=== PATIENT | male | born 1980 | race Caucasian/White ===

== ENCOUNTER 2020-09-10 10:08 | Emergency (ER) | payer MEDICARE, OTHER ==
[~2020-09-10 10:08] MED LIST: ANTIVERT 12.512.5 MG PO; ASPIRIN EC81 MG PO; ATORVASTATIN CA40 MG PO; AUGMENTIN 875-1 EACH PO; CEFUROXIME500 MG PO; HUMALOG100 UNIT/1 SQ; HUMALOG100 UNIT/2 SC; LEVEMIR FL100 UNIT/1 SQ; LIPITOR10 MG PO; NEURONTIN800 MG PO; NITROSTAT0.4 MG SL; NORCO 10-325 T1 EACH PO; PANTOPRAZOLE SO40 MG PO; PERCOCET 5-3251 EACH PO; SEROQUEL TAB 2525 MG PO; TAMSULOSIN HCL0.4 MG PO; TESSALON PERLE100 MG PO; VRAYLAR3 MG PO; ZESTRIL2.5 MG PO; ZOFRAN 4 MG TAB4 MG PO; ZOFRAN4 MG PO
[2020-09-10 10:57] LABS: HEMOGLOBIN 16.5 gm/dl (14.0-17.5); RED BLOOD COUNT 5.34 M/UL (4.20-5.50); WHITE BLOOD COUNT 14.7 K/UL (4.5-11.0)
[2020-09-10 11:20] LABS: BUN/CREATININE RATIO 17 (0-10)
== END 2020-09-10 12:53 | disposition home or self-care (01) ==
LOC: ER1 10:08
PROVIDERS: Physician Assistant
DX: R07.89 Other chest pain (principal); E11.65 Type 2 diabetes mellitus with hyperglycemia; R06.02 Shortness of breath; E78.5 Hyperlipidemia, unspecified; I25.2 Old myocardial infarction; F17.200 Nicotine dependence, unspecified, uncomplicated; Z95.1 Presence of aortocoronary bypass graft; Z95.5 Presence of coronary angioplasty implant and graft; Z79.82 Long term (current) use of aspirin; Z79.899 Other long term (current) drug therapy; Z79.4 Long term (current) use of insulin; Z88.6 Allergy status to analgesic agent; Z53.20 Procedure and treatment not carried out because of patient's decision for unspecified reasons
CPT/HCPCS: 71045; 80053; 82550; 82553; 83874; 84484; 85025; 93005; 96374; 96375; 99285; J2270; J7030; Q9967